=== PATIENT | female | born 1990 | race Caucasian/White ===

== ENCOUNTER → 2017-11-05 16:45 | Outpatient (CLI) | payer OTHER, SELFPAY ==
[2017-11-05 18:13] LABS: Add Manual Diff / Slide Review NO; Basophils Percent Auto 0.3 % (0-2); Eosinophils Percent Auto 0.5 % (2-4); Hematocrit 36.8 % (36-46); Hemoglobin 12.1 g/dL (12.0-16.0); Lymphocytes Percent Auto 13.7 % (25-40); Mean Corpuscular Hemoglobin 27.5 PG (26-34); Mean Corpuscular Volume 83.5 fL (80-100); Monocytes Percent Auto 6.1 % (3-14); Neutrophils Absolute Auto 11000 /uL (3000-5900); Neutrophils Percent Auto 79.4 % (50-75); Platelet Count 235 X10^3/uL (150-400); Red Blood Cell Count 4.41 X10^6/uL (4.0-5.2); Red Cell Distribution Width 13.9 % (11.6-14.8); White Blood Cell Count 13.8 X10^3/uL (4.5-11.0)
[2017-11-05 18:37] LABS: GTT (PREG) 1 Hour PP 50gm Dose 128 mg/dL (76-139)
== END ==
PROVIDERS: Family Provider Family Medicine; PCP Family Medicine; Visit Provider Family Medicine
DX: Z34.02 Encounter for supervision of normal first pregnancy, second trimester (principal)
CPT/HCPCS: 36415; 82950; 85025

== ENCOUNTER → 2017-12-31 16:37 | Outpatient (CLI) | payer OTHER, SELFPAY ==
[2018-01-01 15:52] LABS: Strep Grp B PCR NEG for Grp B Strep
== END ==
PROVIDERS: Family Provider Family Medicine; PCP Family Medicine; Visit Provider Family Medicine
DX: Z3A.36 36 weeks gestation of pregnancy (principal)
CPT/HCPCS: 87653

== ENCOUNTER 2018-01-16 16:35 | Outpatient (CLI) | payer OTHER, SELFPAY ==
--- NOTE | 2018-01-16 17:24 | PM.OBTRLD ---
Visit Information Visit Information Date of evaluation: 01/16/18 Primary OB Provider: Shelia Regalado Reason for Evaluation: Yes rule out labor PFSH Medical History Attention deficit hyperactivity disorder (ADHD) (Chronic 06/02/17) Generalized anxiety disorder (Chronic 06/02/17) ADHD (attention deficit hyperactivity disorder) (Chronic 2003) Anxiety (Chronic 2011) Hayfever (Chronic 2006) Hearing loss (Chronic 1991) Basal cell carcinoma (BCC) of left side of nose (Resolved 2002) Skin cancer (Resolved 2002) Surgical History Anesthesia (Resolved) Basal cell carcinoma (BCC) of left side of nose (Resolved 2002) History of third molar tooth extraction (Resolved 2010) Family History Father Age: 59 Hypertension High cholesterol Grandmother Age: 76 Breast cancer Mental health problem Grandfather Heart disease Hypertension Heart attack Grandfather No problems noted. Mother Mental health problem Anxiety Depression Sister Anxiety Mental health problem Grandmother No problems noted. Evaluation Evaluation Baseline heart rate: 150 Variability: Moderate (11-25) monitor accelerations: Present monitor decelerations: Absent Contraction Frequency (minutes): 5 Category of Tracing: I Cervical dilation (cm): 1 Diagnosis, Plan/Disposition Final Diagnosis (1) Prolonged latent phase of labor: Current Visit: Yes Status: Acute Plan/Disposition Plan: Latent labor. Okay to return home. OB Disposition: home
== END 2018-01-16 17:47 | disposition home or self-care (01) ==
LOC: LABOR 16:37 → OB 01-19 15:22
PROVIDERS: Family Provider Family Medicine; PCP Family Medicine; Visit Provider Family Medicine
DX: Z34.03 Encounter for supervision of normal first pregnancy, third trimester (principal); Z3A.38 38 weeks gestation of pregnancy; M54.9 Dorsalgia, unspecified
CPT/HCPCS: 59025; G0378; G0379

== ENCOUNTER 2018-01-23 00:17 | Outpatient (CLI) | payer OTHER, SELFPAY ==
[2018-01-23] MEDS: MORPHINE 4 MG/ML INJ IM (01:00)
[2018-01-23] MEDS: ZOLPIDEM 5 MG TABLET PO (01:13)
== END 2018-01-23 01:25 | disposition home or self-care (01) ==
LOC: OB 16:43
PROVIDERS: Family Provider Family Medicine; PCP Family Medicine; Visit Provider Specialist
DX: Z34.03 Encounter for supervision of normal first pregnancy, third trimester (principal); Z3A.39 39 weeks gestation of pregnancy
CPT/HCPCS: 59025; 96372; G0378; G0379; J2270

== ENCOUNTER 2018-01-23 10:35 | Inpatient (IN) | payer OTHER, SELFPAY ==
[2018-01-23] MEDS: LACTATED RINGERS 1,000 ML 125 ML IV ×2 (11:50→14:28)
[2018-01-23 12:10] LABS: Add Manual Diff / Slide Review NO; Basophils Percent Auto 0.4 % (0-2); Eosinophils Percent Auto 0.1 % (2-4); Hematocrit 39.3 % (36-46); Lymphocytes Percent Auto 7.6 % (25-40); Mean Corpuscular HGB Conc 33.1 % (30-36); Mean Corpuscular Hemoglobin 26.9 PG (26-34); Mean Corpuscular Volume 81.3 fL (80-100); Monocytes Percent Auto 5.6 % (3-14); Neutrophils Absolute Auto 13700 /uL (3000-5900); Neutrophils Percent Auto 86.3 % (50-75); Platelet Count 215 X10^3/uL (150-400); Red Blood Cell Count 4.84 X10^6/uL (4.0-5.2); Red Cell Distribution Width 14.9 % (11.6-14.8); White Blood Cell Count 15.9 X10^3/uL (4.5-11.0)
[2018-01-23 12:58] VITALS: BP 111/71
--- NOTE | 2018-01-23 13:08 | P.HPOB_ITS ---
OB HPI Date/Time Date of admission: 01/23/18 Date Patient Seen: 01/23/18 Time Patient Seen: 12:20 History of Present Illness Chief complaint: OBS : 1 Para: 0 Estimated Date of Delivery: 01/29/18 Estimated Gestational Age (weeks): 39w1d Narrative: Kecia Wilkerson is a 27 year old at 39w1d who presented in active labor. The pt reports that since yesterday morning she has been having regular painful contractions, ranging from every 3-5 minutes apart to every 10 minutes apart. They have been getting increasingly more painful. She was seen in L&D last night, and her cervix remained 1cm as it was in clinic previously. She receive Morphine and Ambien to help her sleep, and was discharged home. She has only been able to get brief naps. The pt denies any LOF or significant vaginal bleeding. She did lose her mucus plug last night. History of Present care: good care Dating criteria: LMP confirmed by 1st trimester US Ultrasounds: normal mid trimester US Obstetrical complications: none Medical complications: none Preadmission Labs Blood type: A (+) positive -: Antibody screen: negative, GBS status: negative, HBsAG: negative, HIV: negative and RPR/VDLR: negative -: Rubella: immune and Varicella: immune HCT: 40.8 HCAB: negative Quad screen: Normal 1 hr GTT: 128 Evaluation Evaluation Baseline heart rate: 145 Variability: Moderate (11-25) monitor accelerations: Present monitor decelerations: Absent Contraction Frequency (minutes): 5 Uterine Contraction Intensity: Strong/Firm Category of Tracing: I Cervical dilation (cm): 4 Cervical effacement (%): 90 station: 0 Laboratory results: Laboratory Tests 01/23/18 01/23/18 11:50 11:50 WBC 15.9 H RBC 4.84 Hgb 13.0 Hct 39.3 MCV 81.3 MCH 26.9 MCHC 33.1 RDW 14.9 H Plt Count 215 Neut % (Auto) 86.3 H Lymph % (Auto) 7.6 L [place] % (Auto) 5.6 Eos % (Auto) 0.1 L Baso % (Auto) 0.4 Neut # (Auto) 94135 H Blood Type A Positive Antibody Screen Negative [facility] [place] Medical History Attention deficit hyperactivity disorder (ADHD) (Chronic 06/02/17) Generalized anxiety disorder (Chronic 06/02/17) ADHD (attention deficit hyperactivity disorder) (Chronic 2003) Anxiety (Chronic 2011) Hayfever (Chronic 2006) Hearing loss (Chronic 1991) Basal cell carcinoma (BCC) of left side of nose (Resolved 2002) Skin cancer (Resolved 2002) Surgical History Anesthesia (Resolved) Basal cell carcinoma (BCC) of left side of nose (Resolved 2002) History of third molar tooth extraction (Resolved 2010) Family History Father Age: 59 Hypertension High cholesterol Grandmother Age: 76 Breast cancer Mental health problem Grandfather Heart disease Hypertension Heart attack Grandfather No problems noted. Mother Mental health problem Anxiety Depression Sister Anxiety Mental health problem Grandmother No problems noted. Social History Smoking Status: Never smoker Meds Home Medications Medication Instructions Recorded Confirmed Type cetirizine 10 mg PO QDAY #90 tab 05/20/17 01/23/18 Rx omega 3-oji-uqp-fish oil [Fish Oil] 1,000 mg PO DAILY #0 05/20/17 01/23/18 History vit-iron fum-folic ac 1 cap PO QDAY #0 05/20/17 01/23/18 History [Mynatal] breast pump #1 each 11/05/17 01/23/18 Rx Allergies Allergy/AdvReac Type Severity Reaction Status Date / Time No Known Drug Allergies Allergy Verified 01/23/18 11:07 Review of Systems Review of Systems All systems reviewed & are unremarkable except as noted in HPI and below Exam Vital Signs (past 8 hours): - 01/23/18 12:58 Blood Pressure 111/71 Narrative Exam Narrative: Gen: NAD, uncomfortable in bed due to contractions, appears fatigued but well CV: RRR, no murmurs Resp: clear to auscultation bilaterally Abd: soft, gravid, nontender Ext: trace edema Objective Labs Result Diagrams: 01/23/18 11:50 Labs: Laboratory Results - last 24 hr 01/23/18 01/23/18 11:50 11:50 WBC 15.9 H RBC 4.84 Hgb 13.0 Hct 39.3 MCV 81.3 MCH 26.9 MCHC 33.1 RDW 14.9 H Plt Count 215 Neut % (Auto) 86.3 H Lymph % (Auto) 7.6 L [place] % (Auto) 5.6 Eos % (Auto) 0.1 L Baso % (Auto) 0.4 Neut # (Auto) 74615 H Blood Type A Positive Antibody Screen Negative Assessment and Plan (1) Prolonged latent phase of labor: Current visit: No Status: Acute (2) 39 weeks gestation of : Current visit: Yes Status: Acute Plan: Plan: 27yo at 39w1d who presented in active labor - after prolonged latent phase now with significant cervical change. No complications with . GBS negative, Rh positive. - Expectant management, anticipate - Contractions relatively spaced, will monitor and recheck cervix in 1-2 hours, if no change plan to start pitocin vs AROM - GBS negative, no prophylaxis indicated - FHT reassuring - Epidural for pain control now
--- NOTE | 2018-01-23 14:50 | PM.OBPNLAB ---
Date/Time Date Patient Seen: 01/23/18 Time Patient Seen: 14:20 Pain Control Pain control: epidural Pelvic Exam Dilation (cm): 5 Effacement (%): 90 station: 0 Amniotic membrane status: Ruptured Comments: After informed consent, AROM performed with production of clear fluid Contractions Contractions on admission: irregular Monitor mode: External Contraction frequency (min): 5 Contraction duration (min): 1 Contraction pattern: Irregular Contraction intensity: Strong/Firm Status status: Category l Heart Rate Baseline: 145 Monitor Accelerations: Present Monitor Decelerations: Absent Monitor Variability: Moderate Assessment and Plan Assessment: active labor Plan: continuous present management Comments: AROM performed with clear fluid present. Continue to monitor for increase in contraction frequency. If contraction pattern not changing in 1-2 hours, will start pitocin. If contractions increase, will recheck cervix in 1-2 hours and plan to start pitocin if no change. FHT remain reassuring.
--- NOTE | 2018-01-23 14:53 | P.PNOB_ITS ---
Date/Time Date Patient Seen: 01/23/18 Time Patient Seen: 14:20 Pain Control Pain control: epidural Pelvic Exam Dilation (cm): 5 Effacement (%): 90 station: 0 Amniotic membrane status: Ruptured Comments: After informed consent, AROM performed with production of clear fluid Contractions Contractions on admission: irregular Monitor mode: External Contraction frequency (min): 5 Contraction duration (min): 1 Contraction pattern: Irregular Contraction intensity: Strong/Firm Status status: Category l Heart Rate Baseline: 145 Monitor Accelerations: Present Monitor Decelerations: Absent Monitor Variability: Moderate Assessment and Plan Assessment: active labor Plan: continuous present management Comments: AROM performed with clear fluid present. Continue to monitor for increase in contraction frequency. If contraction pattern not changing in 1-2 hours, will start pitocin. If contractions increase, will recheck cervix in 1- 2 hours and plan to start pitocin if no change. FHT remain reassuring.
--- NOTE | 2018-01-23 17:16 | PM.OBTRLD ---
Visit Information Visit Information Date of evaluation: 01/23/18 Primary OB Provider: Shelia Regalado On-call OB Provider: Lydia Mg Reason for Evaluation: Yes rule out labor Comments/Additional reasons for admission: Patient comes in with regular contractions that wax and wane she is getting exhausted no rupture membranes Vital Signs Vital Signs: Vital Signs - 8 hr 01/23/18 12:58 Blood Pressure 111/71 [facility] Medical History Attention deficit hyperactivity disorder (ADHD) (Chronic 06/02/17) Generalized anxiety disorder (Chronic 06/02/17) ADHD (attention deficit hyperactivity disorder) (Chronic 2003) Anxiety (Chronic 2011) Hayfever (Chronic 2006) Hearing loss (Chronic 1991) Basal cell carcinoma (BCC) of left side of nose (Resolved 2002) Skin cancer (Resolved 2002) Surgical History Anesthesia (Resolved) Basal cell carcinoma (BCC) of left side of nose (Resolved 2002) History of third molar tooth extraction (Resolved 2010) Family History Father Age: 59 Hypertension High cholesterol Grandmother Age: 76 Breast cancer Mental health problem Grandfather Heart disease Hypertension Heart attack Grandfather No problems noted. Mother Mental health problem Anxiety Depression Sister Anxiety Mental health problem Grandmother No problems noted. Social History Smoking Status: Never smoker Exam Vital Signs (past 8 hours): - 01/23/18 12:58 Blood Pressure 111/71 Narrative Exam Narrative: Patient getting exhausted and with contractions but not changing her cervix. Objective Labs Result Diagrams: 01/23/18 11:50 Labs: Laboratory Results - last 24 hr 01/23/18 01/23/18 11:50 11:50 WBC 15.9 H RBC 4.84 Hgb 13.0 Hct 39.3 MCV 81.3 MCH 26.9 MCHC 33.1 RDW 14.9 H Plt Count 215 Neut % (Auto) 86.3 H Lymph % (Auto) 7.6 L [place] % (Auto) 5.6 Eos % (Auto) 0.1 L Baso % (Auto) 0.4 Neut # (Auto) 66573 H Blood Type A Positive Antibody Screen Negative Evaluation Evaluation Baseline heart rate: 120 Variability: Moderate (11-25) monitor accelerations: Present monitor decelerations: Absent Contraction Frequency (minutes): 4 Uterine Contraction Intensity: Mild Category of Tracing: I Cervical dilation (cm): 1 Laboratory results: Laboratory Tests 01/23/18 01/23/18 11:50 11:50 WBC 15.9 H RBC 4.84 Hgb 13.0 Hct 39.3 MCV 81.3 MCH 26.9 MCHC 33.1 RDW 14.9 H Plt Count 215 Neut % (Auto) 86.3 H Lymph % (Auto) 7.6 L [place] % (Auto) 5.6 Eos % (Auto) 0.1 L Baso % (Auto) 0.4 Neut # (Auto) 32003 H Blood Type A Positive Antibody Screen Negative Diagnosis, Plan/Disposition Final Diagnosis (1) Prolonged latent phase of labor: Current Visit: No Status: Acute (2) 39 weeks gestation of : Current Visit: Yes Status: Acute Plan/Disposition Plan: Patient was given pain medicine and sleeping pill and advised to go home and rest. She is to return if she ruptures her bag of water or contractions increase. OB Disposition: home
--- NOTE | 2018-01-23 17:20 | P.TNLD_ITS ---
Visit Information Visit Information Date of evaluation: 01/23/18 Primary OB Provider: Shelia Regalado On-call OB Provider: Lydia Mg Reason for Evaluation: Yes rule out labor Comments/Additional reasons for admission: Patient comes in with regular contractions that wax and wane she is getting exhausted no rupture membranes Vital Signs Vital Signs: Vital Signs - 8 hr 01/23/18 12:58 Blood Pressure 111/71 [facility] Medical History Attention deficit hyperactivity disorder (ADHD) (Chronic 06/02/17) Generalized anxiety disorder (Chronic 06/02/17) ADHD (attention deficit hyperactivity disorder) (Chronic 2003) Anxiety (Chronic 2011) Hayfever (Chronic 2006) Hearing loss (Chronic 1991) Basal cell carcinoma (BCC) of left side of nose (Resolved 2002) Skin cancer (Resolved 2002) Surgical History Anesthesia (Resolved) Basal cell carcinoma (BCC) of left side of nose (Resolved 2002) History of third molar tooth extraction (Resolved 2010) Family History Father Age: 59 Hypertension High cholesterol Grandmother Age: 76 Breast cancer Mental health problem Grandfather Heart disease Hypertension Heart attack Grandfather No problems noted. Mother Mental health problem Anxiety Depression Sister Anxiety Mental health problem Grandmother No problems noted. Social History Smoking Status: Never smoker Exam Vital Signs (past 8 hours): - 01/23/18 12:58 Blood Pressure 111/71 Narrative Exam Narrative: Patient getting exhausted and with contractions but not changing her cervix. Objective Labs Result Diagrams: 01/23/18 11:50 Labs: Laboratory Results - last 24 hr 01/23/18 01/23/18 11:50 11:50 WBC 15.9 H RBC 4.84 Hgb 13.0 Hct 39.3 MCV 81.3 MCH 26.9 MCHC 33.1 RDW 14.9 H Plt Count 215 Neut % (Auto) 86.3 H Lymph % (Auto) 7.6 L [place] % (Auto) 5.6 Eos % (Auto) 0.1 L Baso % (Auto) 0.4 Neut # (Auto) 79486 H Blood Type A Positive Antibody Screen Negative Evaluation Evaluation Baseline heart rate: 120 Variability: Moderate (11-25) monitor accelerations: Present monitor decelerations: Absent Contraction Frequency (minutes): 4 Uterine Contraction Intensity: Mild Category of Tracing: I Cervical dilation (cm): 1 Laboratory results: Laboratory Tests 01/23/18 01/23/18 11:50 11:50 WBC 15.9 H RBC 4.84 Hgb 13.0 Hct 39.3 MCV 81.3 MCH 26.9 MCHC 33.1 RDW 14.9 H Plt Count 215 Neut % (Auto) 86.3 H Lymph % (Auto) 7.6 L [place] % (Auto) 5.6 Eos % (Auto) 0.1 L Baso % (Auto) 0.4 Neut # (Auto) 81602 H Blood Type A Positive Antibody Screen Negative Diagnosis, Plan/Disposition Final Diagnosis (1) Prolonged latent phase of labor: Current Visit: No Status: Acute (2) 39 weeks gestation of : Current Visit: Yes Status: Acute Plan/Disposition Plan: Patient was given pain medicine and sleeping pill and advised to go home and rest. She is to return if she ruptures her bag of water or contractions increase. OB Disposition: home
--- NOTE | 2018-01-23 18:54 | PM.OBPRVD ---
Delivery date: 01/23/18 Delivery augmentation: rupture of membranes Delivery monitor: external FHT Route of delivery: Laceration description: Perineal - 1st Degree Delivery repair: chromic (4-O) Estimated blood loss (mL): 400 Anesthesia type: Epidural Narrative: PROCEDURE: at 39w1d presented in active labor and was admitted to Labor and Delivery. The patient progressed through the 1st stage over 26 hours. Pain was controlled with an epidural. AROM was performed with production of clear fluid. The patient progressed through the 2nd stage over 2 hours and delivered a viable male with APGARs 8/9 at 18:23 via . The perineum and vagina were inspected with small 1st degree laceration repaired with 4-O Chromic. There was brisk bleeding controlled with bimanual massage. PREPROCEDURE DIAGNOSIS: Intrauterine at 39w1d GBS negative RH positive POSTPROCEDURE DIAGNOSIS: Intrauterine at 39w1d, delivered Same as preprocedure ROM APPEARANCE: Clear BABY A WEIGHT: [id number] BABY A NUCHAL CORD: No BABY A CORD GASES OBTAINED: No PLACENTA DELIVERY TIME: 18:29 PLACENTA APPEARANCE: Intact EBL: 400mL [place] Baby 1: gender: Male Presentation: vertex position: Right Occiput Anterior Placenta delivery description: Spontaneous cord vessel description: 3 Vessels
--- NOTE | 2018-01-23 18:58 | P.PCNOB_ITS ---
Delivery date: 01/23/18 Delivery augmentation: rupture of membranes Delivery monitor: external FHT Route of delivery: Laceration description: Perineal - 1st Degree Delivery repair: chromic (4-O) Estimated blood loss (mL): 400 Anesthesia type: Epidural Narrative: PROCEDURE: at 39w1d presented in active labor and was admitted to Labor and Delivery. The patient progressed through the 1st stage over 26 hours. Pain was controlled with an epidural. AROM was performed with production of clear fluid. The patient progressed through the 2nd stage over 2 hours and delivered a viable male with APGARs 8/9 at 18:23 via . The perineum and vagina were inspected with small 1st degree laceration repaired with 4-O Chromic. There was brisk bleeding controlled with bimanual massage. PREPROCEDURE DIAGNOSIS: Intrauterine at 39w1d GBS negative RH positive POSTPROCEDURE DIAGNOSIS: Intrauterine at 39w1d, delivered Same as preprocedure ROM APPEARANCE: Clear BABY A WEIGHT: [id number] BABY A NUCHAL CORD: No BABY A CORD GASES OBTAINED: No PLACENTA DELIVERY TIME: 18:29 PLACENTA APPEARANCE: Intact EBL: 400mL [place] Baby 1: gender: Male Presentation: vertex position: Right Occiput Anterior Placenta delivery description: Spontaneous cord vessel description: 3 Vessels
[2018-01-24] MEDS: IBUPROFEN 600 MG TABLET PO ×4 (00:30→21:03)
[2018-01-24] MEDS: LANOLIN OINT 7 GM 1 APPLIC TOP (06:08)
[2018-01-24] MEDS: DOCUSATE 250 MG CAPSULE PO (08:35)
[2018-01-24] MEDS: PRENATAL VIT,CALC/IRON/FOLIC 1 TABLET 1 TAB PO (08:35)
--- NOTE | 2018-01-24 20:51 | PM.OBPN.1 ---
Subjective - OB Interval history: This morning, the patient reports that she is feeling well. Her pain is adequately controlled with ibuprofen. Her lochia is slowing appropriately. She has been able to ambulate and void without any difficulty. She is not yet passing flatus. She has been having some difficulty with breast feeding due to flat nipples, but is using a nipple shield now. [place] baby status: doing well feeding status: exclusively breast feeding Date Patient Seen: 01/24/18 Time Patient Seen: 09:30 Exam Narrative Exam Narrative: General: No acute distress, sitting comfortably in bed, appears well CV: Regular rate and rhythm, no murmurs Respiratory: Clear to auscultation bilaterally Abdomen: Soft, appropriately tender, slightly distended, fundus firm below the umbilicus Extremities: No edema Objective Labs Result Diagrams: 01/23/18 11:50 Assessment & Plan (1) 39 weeks gestation of : Status: Acute Current Visit: Yes (2) (spontaneous vaginal delivery): Status: Acute Current Visit: Yes Plan Comments: 27-year-old day 1 Status post spontaneous vaginal delivery. Patient is doing well without any complications. - normal care - continue breast feeding support Time Spent With Patient Total time spent is greater than 50% in coordination of care (as documented) at patient's floor/unit and/or counseling patient: 25 - 35 minutes
--- NOTE | 2018-01-25 09:52 | PM.OBDS.1 ---
Discharge Providers Date of admission: 01/23/18 10:35 Primary care physician: Shelia Regalado MD Consults: 01/24/18 01:04 Consult to Welder Fitter Helper Routine Comment: Discharge provider: Shelia Regalado MD Summary Date Patient Seen: 01/25/18 Time Patient Seen: 09:00 Hospital Course: The patient was admitted in active labor. She received an epidural for pain control. AROM was performed with production of clear fluid. The patient progressed to complete. She had an uncomplicated spontaneous vaginal delivery of a viable baby boy. A small first-degree laceration was then repaired. The patient tolerated delivery well. , there were no complications. At the time of discharge was voiding, ambulating, passing flatus without difficulty. Her lochia was decreasing appropriately. She was breast feeding with a nipple shield. Her pain was adequately controlled. She is uncertain what she would like to use control. Peripartum Data Delivery Method: Natural Vaginal Laceration description: Perineal - 1st Degree Episiotomy description: None Procedures: Spontaneous vaginal delivery complications: none Discharge Diagnosis (1) 39 weeks gestation of : Status: Acute (2) (spontaneous vaginal delivery): Status: Acute Status at Discharge Functional status at discharge: independent ambulation Overall status at discharge: patient is progressing back to baseline Time Spent with Patient Total time spent providing and/or coordinating discharge services: Greater than 30 minutes Objective Labs Result Diagrams: 01/23/18 11:50 Discharge Plan Discharge Plan Patient Disposition: Home, Self-Care Discharge Med Rec/Prescriptions Prescriptions: New acetaminophen 325 mg Tablet 650 mg PO Q6H PRN (Reason: Pain, Mild (1-3)) Qty: 30 RF: 0 benzocaine-menthol [Dermoplast (with menthol)] 20-0.5 % Aerosol 1 spray Topical Q1H PRN (Reason: perineal pain) Qty: 15 RF: 0 ibuprofen 600 mg Tablet 600 mg PO Q6H PRN (Reason: Pain, Mild (1-3)) Qty: 30 RF: 0 docusate sodium 250 mg Capsule 250 mg PO DAILY Qty: 60 RF: 0 lanolin [Iqa-P-Gosuqc] Cream 1 applic Topical PRN PRN (Reason: Tenderness) Qty: 15 RF: 0 Continue vit-iron fum-folic ac [Mynatal] 1 EACH capsule 1 cap PO QDAY Qty: 0 RF: 0 omega 8-exr-wlq-fish oil [Fish Oil] 1,000 MG capsule 1,000 mg PO DAILY Qty: 0 RF: 0 cetirizine 10 MG tablet 10 mg PO QDAY Qty: 90 RF: 5 breast pump device .ROUTE .MEDSUPPLY Qty: 1 RF: 0 Follow up/Referrals: Shelia Regalado MD [Primary Care Provider] - 6 Weeks Provider Discharge Instructions Diet: Regular Activity: No intercourse for 6 weeks Wound Care Report to your healthcare provider any signs of infection, such as:: chills, fever, increased pain and unusual drainage Visit Report/Discharge Packet Instructions: DI for Labor and Delivery, Vaginal Discharge Data Primary Care Provider: Shelia Regalado Attending Provider: Shelia Regalado Admit Date/Time: 01/23/18 10:35
--- NOTE | 2018-01-25 09:55 | P.DS_ITS ---
Discharge Providers Date of admission: 01/23/18 10:35 Primary care physician: Shelia Regalado MD Consults: 01/24/18 01:04 Consult to Motor Checker Routine Comment: Discharge provider: Shelia Regalado MD Summary Date Patient Seen: 01/25/18 Time Patient Seen: 09:00 Hospital Course: The patient was admitted in active labor. She received an epidural for pain control. AROM was performed with production of clear fluid. The patient progressed to complete. She had an uncomplicated spontaneous vaginal delivery of a viable baby boy. A small first-degree laceration was then repaired. The patient tolerated delivery well. , there were no complications. At the time of discharge was voiding, ambulating, passing flatus without difficulty. Her lochia was decreasing appropriately. She was breast feeding with a nipple shield. Her pain was adequately controlled. She is uncertain what she would like to use control. Peripartum Data Delivery Method: Natural Vaginal Laceration description: Perineal - 1st Degree Episiotomy description: None Procedures: Spontaneous vaginal delivery complications: none Discharge Diagnosis (1) 39 weeks gestation of : Status: Acute (2) (spontaneous vaginal delivery): Status: Acute Status at Discharge Functional status at discharge: independent ambulation Overall status at discharge: patient is progressing back to baseline Time Spent with Patient Total time spent providing and/or coordinating discharge services: Greater than 30 minutes Objective Labs Result Diagrams: 01/23/18 11:50 Discharge Plan Discharge Plan Patient Disposition: Home, Self-Care Discharge Med Rec/Prescriptions Prescriptions: New acetaminophen 325 mg Tablet 650 mg PO Q6H PRN (Reason: Pain, Mild (1-3)) Qty: 30 RF: 0 benzocaine-menthol [Dermoplast (with menthol)] 20-0.5 % Aerosol 1 spray Topical Q1H PRN (Reason: perineal pain) Qty: 15 RF: 0 ibuprofen 600 mg Tablet 600 mg PO Q6H PRN (Reason: Pain, Mild (1-3)) Qty: 30 RF: 0 docusate sodium 250 mg Capsule 250 mg PO DAILY Qty: 60 RF: 0 lanolin [[id number]] Cream 1 applic Topical PRN PRN (Reason: Tenderness) Qty: 15 RF: 0 Continue vit-iron fum-folic ac [Mynatal] 1 EACH capsule 1 cap PO QDAY Qty: 0 RF: 0 omega 1-nas-orj-fish oil [Fish Oil] 1,000 MG capsule 1,000 mg PO DAILY Qty: 0 RF: 0 cetirizine 10 MG tablet 10 mg PO QDAY Qty: 90 RF: 5 breast pump device .ROUTE .MEDSUPPLY Qty: 1 RF: 0 Follow up/Referrals: Shelia Regalado MD [Primary Care Provider] - 6 Weeks Provider Discharge Instructions Diet: Regular Activity: No intercourse for 6 weeks Wound Care Report to your healthcare provider any signs of infection, such as:: chills, fever, increased pain and unusual drainage Visit Report/Discharge Packet Instructions: DI for Labor and Delivery, Vaginal Discharge Data Primary Care Provider: Shelia Regalado Attending Provider: Shelia Regalado Admit Date/Time: 01/23/18 10:35
[2018-01-25] MEDS: DERMOPLAST SPRAY 20% 60 ML 1 SPRAY TOP (10:58)
[2018-01-25 10:59] VITALS: TEMP 37.2
[2018-01-25] MEDS: IBUPROFEN 600 MG TABLET PO (10:59)
== END 2018-01-25 11:15 | disposition home or self-care (01) | DRG 775 ==
PROVIDERS: Admitting Provider Family Medicine; Family Provider Family Medicine; PCP Family Medicine; Visit Provider Family Medicine
DX: O63.1 Prolonged second stage (of labor) (principal); Z3A.39 39 weeks gestation of pregnancy; Z37.0 Single live birth
CPT/HCPCS: 01967; 59050; 59400; 85025; 86850; 86900; 86901; G0379; J3010

== ENCOUNTER → 2018-05-26 15:20 | Outpatient (CLI) | payer OTHER, SELFPAY | PROVIDERS: Family Provider Family Medicine; PCP Family Medicine; Visit Provider Family Medicine | DX: N90.89 Other specified noninflammatory disorders of vulva and perineum (principal) | CPT/HCPCS: 87070; 87205 ==

== ENCOUNTER → 2019-07-12 12:53 | Outpatient (CLI) | payer OTHER, SELFPAY ==
[2019-07-12 14:15] LABS: HCG Quantitative /Beta subunit 1442.8 mIU/mL
== END ==
PROVIDERS: PCP Family Medicine; Visit Provider Family Medicine
DX: O20.9 Hemorrhage in early pregnancy, unspecified (principal)
CPT/HCPCS: 36415; 84702

== ENCOUNTER → 2019-07-14 09:17 | Outpatient (CLI) | payer OTHER, SELFPAY ==
[2019-07-14 10:00] LABS: HCG Quantitative /Beta subunit 3353.1 mIU/mL
== END ==
PROVIDERS: PCP Family Medicine; Visit Provider Family Medicine
DX: O20.9 Hemorrhage in early pregnancy, unspecified (principal)
CPT/HCPCS: 36415; 84702

== ENCOUNTER → 2019-07-19 09:48 | Outpatient (CLI) | payer OTHER, SELFPAY ==
[2019-07-19 10:29] LABS: Add Manual Diff / Slide Review NO; Basophils Absolute Auto 0 /uL (0-100); Basophils Percent Auto 0.5 % (0-2); Eosinophils Absolute Auto 0 /uL (0-450); Eosinophils Percent Auto 0.5 % (2-4); Hematocrit 38.9 % (36-46); Hemoglobin 13.3 g/dL (12.0-16.0); Lymphocytes Absolute Auto 2000 /uL (1100-4500); Lymphocytes Percent Auto 31.1 % (25-40); Mean Corpuscular HGB Conc 34.2 % (30-36); Mean Corpuscular Hemoglobin 28.7 PG (26-34); Monocytes Absolute Auto 600 /uL (0-900); Monocytes Percent Auto 9.7 % (3-14); Neutrophils Absolute Auto 3800 /uL (1500-7000); Neutrophils Percent Auto 58.2 % (50-75); Platelet Count 217 X10^3/uL (150-400); Red Blood Cell Count 4.63 X10^6/uL (4.0-5.2); Red Cell Distribution Width 12.7 % (11.6-14.8); White Blood Cell Count 6.5 X10^3/uL (4.5-11.0)
[2019-07-19 11:15] LABS: HCG Quantitative /Beta subunit 14091 mIU/mL
== END ==
PROVIDERS: PCP Family Medicine; Visit Provider Family Medicine
DX: O20.9 Hemorrhage in early pregnancy, unspecified (principal); Z34.90 Encounter for supervision of normal pregnancy, unspecified, unspecified trimester
CPT/HCPCS: 36415; 84702; 85025

== ENCOUNTER → 2019-07-28 09:57 | Outpatient (CLI) | payer OTHER, SELFPAY ==
[2019-07-28 11:45] LABS: HCG Quantitative /Beta subunit 64069 mIU/mL
== END ==
PROVIDERS: PCP Family Medicine; Referring Provider Family Medicine; Visit Provider Family Medicine
DX: O20.9 Hemorrhage in early pregnancy, unspecified (principal)
CPT/HCPCS: 36415; 84702

== ENCOUNTER → 2019-07-29 08:10 | Outpatient (CLI) | payer OTHER, SELFPAY ==
--- NOTE | 2019-07-29 08:12 | DI.US.S_ITS ---
PROCEDURE: US OB <= 14 WEEKS FETUS INDICATIONS: dates and viability OUTSIDE/PRIOR DATING DATA: Last menstrual period (LMP): 06/09/19. LMP-based estimated date of delivery (JOAN): 03/15/20. First dating scan (date and location): 07/29/19, [facility]. Estimated date of delivery (JOAN) from first dating scan: 03/14/20. TECHNIQUE: Real-time scanning was performed of the fetus and maternal pelvic organs, with image documentation. Endovaginal scanning was also performed to better visualize the fetus and maternal ovaries. COMPARISON: None. FINDINGS: Embryo: A single live intrauterine is seen. The measured heart rate is 139 beats per minute. The crown-rump length measures 1.2 cm, corresponding to an estimated gestational age of 7 weeks 2 days. It is too early for detailed anatomic assessment. By visual inspection, the amount of amniotic fluid is within normal limits. Adjacent to the gestational sac, there is nonvascular subchorionic hemorrhage seen measures 2.2 x 5.6 x 2.6 cm. Measurement variability in dating: +/- 4 weeks by LMP, +/- 7 days by mean sac diameter (use before 6 weeks gestation if crown-rump length not able to be measured), +/- 5 days by crown-rump length (up to 8 weeks 6 days gestation), +/- 7 days by crown-rump length (up to 13 weeks 6 days gestation). Maternal organs: The right ovary is unremarkable. The left ovary was not seen. Limited images through the kidneys demonstrate no hydronephrosis. IMPRESSION: A single live intrauterine is seen. No significant discrepancy is found between the estimated gestational age based on these images and the estimated gestational age based upon the given date of the last menstrual period. Relatively prominent amount of subchorionic hemorrhage can be seen. Close clinical followup with serial ultrasound are recommended, as clinically appropriate. Note: Concordant preliminary findings given by the business continuity analyst upon the completion of the examination to Michelle Nolasco (Dr. Singleton's biomedical field service engineer) at 9:19 AM on July 29, 2019. Dictated by: Benjamin Daniel M.D. on 07/29/2019 at 9:54 Approved by: Benjamin Daniel M.D. on 07/29/2019 at 9:57
== END ==
PROVIDERS: PCP Family Medicine; Referring Provider Family Medicine; Visit Provider Family Medicine
DX: O20.9 Hemorrhage in early pregnancy, unspecified (principal); O26.21 Pregnancy care for patient with recurrent pregnancy loss, first trimester; Z3A.01 Less than 8 weeks gestation of pregnancy
CPT/HCPCS: 76801; 76817

== ENCOUNTER → 2019-08-03 09:40 | Outpatient (CLI) | payer OTHER, SELFPAY ==
--- NOTE | 2019-08-03 09:41 | DI.US.S_ITS ---
PROCEDURE: US OB <= 14 WEEKS FETUS INDICATIONS: FOLLOW-UP SUBCHORIONIC HEMORRHAGE OUTSIDE/PRIOR DATING DATA: Last menstrual period (LMP): 06/09/19. LMP-based estimated date of delivery (JOAN): 03/15/20. First dating scan (date and location): 07/29/2019. Estimated date of delivery (JOAN) from first dating scan: 03/14/2020. TECHNIQUE: Real-time scanning was performed of the fetus and maternal pelvic organs, with image documentation. Endovaginal scanning was also performed to better visualize the fetus and maternal ovaries. COMPARISON: [facility], OB <= 14 WEEKS FETUS, 07/29/2019, 8:31. FINDINGS: Embryo: Single living intrauterine gestation measuring approximately 7 weeks and 6 days in gestation age based off crown-rump length of 1.5 cm. heart rate measures 160 beats per minute. Persistent perigestational fluid collection measuring 1.9 x 5.4 x 4.9 cm, previously 2.2 x 5.6 x 2.6 cm. Measurement variability in dating: +/- 4 weeks by LMP, +/- 7 days by mean sac diameter (use before 6 weeks gestation if crown-rump length not able to be measured), +/- 5 days by crown-rump length (up to 8 weeks 6 days gestation), +/- 7 days by crown-rump length (up to 13 weeks 6 days gestation). Maternal organs: Limited images through the maternal pelvis demonstrate no abnormalities. IMPRESSION: Single living intrauterine gestation measuring approximately 7 weeks and 6 days in gestational age. Expected interval growth has occurred. Persistent perigestational hemorrhage. Recommend continued clinical and imaging surveillance as appropriate. Dictated by: Kamron Rouse M.D. on 08/03/2019 at 12:26 Approved by: Kamron Rouse M.D. on 08/03/2019 at 12:33
== END ==
PROVIDERS: PCP Family Medicine; Referring Provider Family Medicine; Visit Provider Family Medicine
DX: O46.8X1 Other antepartum hemorrhage, first trimester (principal); O41.8X10 Other specified disorders of amniotic fluid and membranes, first trimester, not applicable or unspecified; Z3A.01 Less than 8 weeks gestation of pregnancy
CPT/HCPCS: 76801; 76817

== ENCOUNTER → 2019-08-19 10:40 | Outpatient (CLI) | payer OTHER, SELFPAY ==
[2019-08-19 11:58] LABS: Appearance Urine UA CLEAR; Bilirubin Urine UA NEGATIVE (NEGATIVE); Color Urine UA YELLOW; Glucose Urine UA NEGATIVE (Negative); Ketones Urine UA NEGATIVE (NEGATIVE); Leukocyte Esterase Urine UA NEGATIVE (NEGATIVE); Nitrite Urine UA NEGATIVE (Negative); Occult Blood Urine UA NEGATIVE (Negative); Protein Urine UA NEGATIVE (Negative); Urobilinogen Urine UA 0.2 E.U./dL (0.2)
[2019-08-19 12:10] LABS: Add Manual Diff / Slide Review NO; Basophils Absolute Auto 0 /uL (0-100); Basophils Percent Auto 0.3 % (0-2); Eosinophils Absolute Auto 0 /uL (0-450); Eosinophils Percent Auto 0.4 % (2-4); Hematocrit 41.5 % (36-46); Hemoglobin 13.9 g/dL (12.0-16.0); Lymphocytes Absolute Auto 1800 /uL (1100-4500); Lymphocytes Percent Auto 21.5 % (25-40); Mean Corpuscular HGB Conc 33.5 % (30-36); Mean Corpuscular Hemoglobin 28.6 PG (26-34); Mean Corpuscular Volume 85.4 fL (80-100); Monocytes Absolute Auto 500 /uL (0-900); Monocytes Percent Auto 5.5 % (3-14); Neutrophils Absolute Auto 6200 /uL (1500-7000); Neutrophils Percent Auto 72.3 % (50-75); Platelet Count 234 X10^3/uL (150-400); Red Blood Cell Count 4.86 X10^6/uL (4.0-5.2); Red Cell Distribution Width 13.2 % (11.6-14.8); White Blood Cell Count 8.6 X10^3/uL (4.5-11.0)
[2019-08-19 15:35] LABS: Hepatitis B Surface Antigen NEGATIVE s/c (NEGATIVE); Rubella Antibody IgG 57.2 IU/mL (>15)
[2019-08-19 15:52] LABS: HIV 1 & 2 Ab/Ag 4th Gen Combo NEGATIVE (NEGATIVE); Hep C Virus Ab w/Reflex Quant NEGATIVE s/c (NEGATIVE)
[2019-08-21 21:08] LABS: RPR Screen Nonreactive (Nonreactive)
== END ==
PROVIDERS: PCP Family Medicine; Referring Provider Family Medicine; Visit Provider Family Medicine
DX: Z34.81 Encounter for supervision of other normal pregnancy, first trimester (principal)
CPT/HCPCS: 36415; 80055; 81003; 86787; 86803; 86850; 86900; 86901; 87086; 87389

== ENCOUNTER → 2019-08-30 09:23 | Outpatient (CLI) | payer OTHER, SELFPAY ==
[2019-08-30 13:25] LABS: Specimen Label NATERA
== END ==
PROVIDERS: PCP Family Medicine; Referring Provider Family Medicine; Visit Provider Family Medicine
DX: Z36.0 Encounter for antenatal screening for chromosomal anomalies (principal)
CPT/HCPCS: 36415

== ENCOUNTER → 2019-10-26 09:39 | Outpatient (CLI) | payer OTHER, SELFPAY ==
--- NOTE | 2019-10-26 09:40 | DI.US.S_ITS ---
PROCEDURE: US OB >= 14 WEEKS FETUS INDICATIONS: ANATOMY SCREEN OUTSIDE/PRIOR DATING DATA: Last menstrual period (LMP): 06/09/19. LMP-based estimated date of delivery (JOAN): 03/15/20. First dating scan (date and location): 07/29/19. Estimated date of delivery (JOAN) from first dating scan: 03/14/20. TECHNIQUE: Real-time scanning was performed of the fetus, with image documentation and biometric measurements. Endovaginal scanning: Not performed COMPARISON: [facility], , OB >= 14 WEEKS FETUS, 09/07/2019, 9:37. FINDINGS: General: A single living intrauterine gestation is present. Presentation: Variable/cephalic. Placenta: Placental position is posterior, without previa. Amniotic fluid index: 11.7 cm, normal range is 5-24 cm. heart rate: 150 beats per minute. Maternal cervical canal: 4.3 cm long. Normal lower limit is 2.5 cm. biometrics: Biparietal diameter: 4.6 cm, 19 weeks, 5 days Head circumference: 17.3 cm, 19 weeks, 6 days Abdominal circumference: 14.9 cm, 20 weeks, one day Femur length: 3.2 cm, 20 weeks, zero days Estimated gestational age from initial scan: 20 weeks, zero days. Composite gestational age from present scan: 20 weeks, zero days Estimated weight and percentile: 330 g, 49th percentile Measurement variability for biometric dating: +/- 7 days from 14 weeks to 15 weeks 6 days gestation, +/- 10 days from 16 weeks to 21 weeks 6 days gestation, +/- 2 weeks from 22 weeks to 27 weeks 6 days gestation, +/- 3 weeks for 28 weeks gestation or later. weight reference: 4500 g or EFW >90/95% is considered macrosomia or large for gestational age. EFW <10% is small for gestational age. EFW 5% or less is considered intra-uterine growth restriction. Anatomic survey: Neuro: Ventricles are non-dilated at less than 10 mm. Cisterna magna is normal at 3-11 mm. Cerebellum is normal in size and morphology. Nuchal skin fold: Normal at less than 6 mm between 14-21 weeks gestational age. Face: Nose and lips, facial profile are normal. Spine: No evidence for spina bifida. Heart: There is suboptimal visualization of the 4 chambers of the heart and cardiac outflow tracts. Diaphragm: Diaphragm is intact. Stomach: Left-sided stomach is present. Kidneys: No hydronephrosis. Normal is less than 5 mm in 2nd trimester, less than 7 mm in 3rd trimester. Cord: 3-vessel cord has orthotopic insertion. Bladder: Normal in size. Extremities: All 4 extremities identified. IMPRESSION: 1. Single intrauterine with a composite gestational age in good agreement with the initially assigned gestational age of 20 weeks, zero days. 2. Symmetric growth. 3. There is suboptimal visualization of the 4 chambered heart and cardiac outflow tracts. 4. Otherwise normal anatomy. Dictated by: Marie Chun M.D. on 10/26/2019 at 11:07 Approved by: Marie Chun M.D. on 10/26/2019 at 11:30
== END ==
PROVIDERS: PCP Family Medicine; Referring Provider Family Medicine; Visit Provider Family Medicine
DX: Z36.89 Encounter for other specified antenatal screening (principal); Z3A.20 20 weeks gestation of pregnancy
CPT/HCPCS: 76811

== ENCOUNTER → 2019-11-12 07:39 | Outpatient (CLI) | payer OTHER, SELFPAY ==
--- NOTE | 2019-11-12 07:40 | DI.US.S_ITS ---
PROCEDURE: US OB FOLLOW UP INDICATIONS: RE-EVALUATE HEART OUTSIDE/PRIOR DATING DATA: Last menstrual period (LMP): 06/09/2019. LMP-based estimated date of delivery (JOAN): 03/15/2020. First dating scan (date and location): 07/29/2019. Estimated date of delivery (JOAN) from first dating scan: 03/14/0.20. TECHNIQUE: Real-time scanning was performed of the fetus, with image documentation and biometric measurements. COMPARISON: [facility], OB >= 14 WEEKS FETUS, 10/26/2019, 9:52. FINDINGS: General: A single living intrauterine gestation is present. Presentation: Breech. Placenta: Placental position is posterior, without previa. Amniotic fluid index: 14.8 cm, normal range is 5-24 cm. heart rate: 155 beats per minute. Maternal cervical canal: 3.7 cm long. Normal lower limit is 2.5 cm. Estimated gestational age from initial scan: 22 weeks 3 days. Composite gestational age from present scan: Not applicable. Other: The heart is unremarkable. Normal four-chamber heart, LVOT, RVOT views. IMPRESSION: 1. [place] living intrauterine at 22 weeks 3/7 days based on prior ultrasound. 2. Normal placenta and amniotic fluid. 3. Sonographic appearance of the heart heart is normal. Completed anatomic survey. Dictated by: Yasmani Rodriguez M.D. on 11/12/2019 at 9:22 Approved by: Yasmani Rodriguez M.D. on 11/12/2019 at 9:27
== END ==
PROVIDERS: PCP Family Medicine; Referring Provider Family Medicine; Visit Provider Family Medicine
DX: O28.3 Abnormal ultrasonic finding on antenatal screening of mother (principal); Z3A.22 22 weeks gestation of pregnancy
CPT/HCPCS: 76816

== ENCOUNTER → 2019-12-04 08:02 | Outpatient (CLI) | payer OTHER, SELFPAY ==
[2019-12-04 10:24] LABS: Add Manual Diff / Slide Review NO; Basophils Absolute Auto 0 /uL (0-100); Basophils Percent Auto 0.4 % (0-2); Eosinophils Absolute Auto 100 /uL (0-450); Eosinophils Percent Auto 0.6 % (2-4); Hematocrit 37.2 % (36-46); Hemoglobin 12.5 g/dL (12.0-16.0); Lymphocytes Absolute Auto 2000 /uL (1100-4500); Lymphocytes Percent Auto 19.4 % (25-40); Mean Corpuscular HGB Conc 33.6 % (30-36); Mean Corpuscular Hemoglobin 29.4 PG (26-34); Mean Corpuscular Volume 87.4 fL (80-100); Monocytes Absolute Auto 500 /uL (0-900); Neutrophils Absolute Auto 7700 /uL (1500-7000); Neutrophils Percent Auto 74.6 % (50-75); Platelet Count 210 X10^3/uL (150-400); Red Blood Cell Count 4.25 X10^6/uL (4.0-5.2); Red Cell Distribution Width 13.8 % (11.6-14.8); White Blood Cell Count 10.3 X10^3/uL (4.5-11.0)
[2019-12-04 11:35] LABS: GTT (PREG) 1 Hour PP 50gm Dose 121 mg/dL (76-139)
== END ==
PROVIDERS: PCP Family Medicine; Referring Provider Family Medicine; Visit Provider Family Medicine
DX: Z34.92 Encounter for supervision of normal pregnancy, unspecified, second trimester (principal)
CPT/HCPCS: 36415; 82950; 85025